=== PATIENT | female | born 1935 | race Caucasian/White ===

== ENCOUNTER → 2016-10-21 | Outpatient (CLI) | payer OTHER ==
[~2016-10-21] MED LIST: ASPEC81 PO; CENTTAB41; CLTP PO; DIPH-437 PO; DTR5 PO; FLUO40CA8 PO; HYZ/10015 PO; THYROXINE PO
--- NOTE | 2016-10-21 13:27 | MAMMOGRAPHY REPORT ---
BILATERAL DIGITAL SCREENING MAMMOGRAM WITH CAD: 10/21/2016 CLINICAL HISTORY: Routine screening. Patient has no complaints. TECHNIQUE: Current study was also evaluated with a Computer Aided Detection (CAD) system. Bilateral CC and MLO views were obtained. COMPARISON: Comparison is made to exams dated: 10/21/2015 mammogram, 10/17/2014 mammogram, 10/16/2013 ma mmogram, 10/12/2012 mammogram, 10/12/2011 mammogram, and 10/03/2009 mammogram - [facility] er. BREAST COMPOSITION: There are scattered areas of fibroglandular density in both breasts. FINDINGS: No suspicious masses, calcifications, or areas of architectural distortion are noted in ei ther breast. There has been no significant interval change compared to prior exams. IMPRESSION: ACR BI-RADS CATEGORY 1: NEGATIVE There is no mammographic evidence of malignancy. A 1 year screening mammogram is recommended. The pa tient will receive written notification of the results. Approximately 10% of breast cancers are not detected with mammography. A negative mammographic report should not delay biopsy if a clinically suggestive mass is present. Domenica Felder M.D. /:10/21/2016 12:51:04 Application Development Team Lead: Dina VAUGHAN)(Raeann), [facility] letter sent: Normal 1/2 BI-RADS Code: ACR BI-RADS Category 1: Negative
== END | disposition home or self-care (01) ==
LOC: C.MAMM 11:13
PROVIDERS: ATTEND Family Medicine
DX: Z12.31 Encounter for screening mammogram for malignant neoplasm of breast (principal)

== ENCOUNTER → 2016-12-22 | Outpatient (CLI) | payer OTHER ==
[2016-12-22 17:40] LABS: BASO % 0.7 %; BASO ABS # 0.05 K/uL (0-0.2); COMPLETE YES; EOS % 2.2 %; HEMATOCRIT 43.3 % (37-47); IG% 0.4 %; LYMPH % 36.1 %; LYMPH ABS # 2.47 K/uL (1.2-3.4); MEAN CELL VOLUME 90.8 fL (80-100); MEAN CORPUSCULAR HGB CONC 34.2 g/dl (32-36); MEAN PLATELET VOLUME 10.6 fL (7.4-10.4); MONO % 9.6 %; PLATELET COUNT 371 K/uL (130-400); RED BLOOD COUNT 4.77 M/uL (4.2-5.4); WHITE BLOOD COUNT 6.84 K/uL (4.8-10.8)
[2016-12-22 17:43] LABS: ALT/SGPT 20 U/L (12-78); AST/SGOT 15 U/L (15-37); BLOOD UREA NITROGEN 24 mg/dl (7-18); CALCIUM 8.9 mg/dl (8.5-10.1); CARBON DIOXIDE 28 mmol/L (21-32); CHLORIDE 106 mmol/L (98-107); GLUCOSE 102 mg/dl (70-99); SODIUM 139 mmol/L (136-145)
[2016-12-22 17:53] LABS: ALKALINE PHOSPHATASE 77 U/L (45-117)
== END | disposition home or self-care (01) ==
LOC: C.LABBFT 12:10
PROVIDERS: ATTEND Internal Medicine
DX: Z00.00 Encounter for general adult medical examination without abnormal findings (principal); E03.9 Hypothyroidism, unspecified; L29.9 Pruritus, unspecified; I10 Essential (primary) hypertension

== ENCOUNTER → 2017-04-19 | Outpatient (CLI) | payer OTHER ==
--- NOTE | 2017-04-19 10:58 | DIAGNOSTIC IMAGING REPORT ---
CHEST 2 VIEWS ROUTINE CLINICAL HISTORY: R05 Cough COMPARISON STUDY: No previous studies for comparison. FINDINGS: The cardiac and mediastinal contours are normal. There is no evidence of focal pulmonary consolidation. There is no evidence of failure. No pleural effusions are visualized.[ There is colonic interposition. IMPRESSION: No active disease in the chest. Electronically signed by: Jg Taveras M.D. 04/19/2017 10:57 AM Dictated Date/Time: 04/19/2017 10:57 AM
== END | disposition home or self-care (01) ==
LOC: C.RAD1850 10:46
PROVIDERS: ATTEND Nurse Practitioner
DX: R05 Cough (principal)

== ENCOUNTER 2021-07-09 05:02 | Observation (INO) ==
--- NOTE | 2021-07-08 08:40 | Anesthesiology Consultation ---
Date of Service July 08, 2021 Assessment & Plan (1) Encounter for pre-operative examination: - fluid orders: case including renal function, Cr 1.77 from [address] Frazier who advised normal saline with 500 cc bolus. This was ordered on fluid sheet. - Chronic back pain-onset after multiple attempts at epidural placement in labor per pt. - COVID screening: Per agriscience teacher on 07/07/2021: Travel screen negative, no known COVID-19 positive contacts or current COVID-19 related symptoms in past 2 weeks. Patient vaccinated. Surgeon arranging preop COVID testing, scheduled 07/07/2021. Awaiting results. Chart Review Chart Review: Acceptable Risk for Surgery and Patient NOT seen in Pre Admission Testing History Surgery Operation Date: 07/09/21 08:50 Proposed Procedures p Right Total Anterior Hip Replacement - Noah Arias DO Surgery re-scheduled to 07/09/2021. PAT evaluation 03/24/2021. Height/Weight Height: 5 ft 1 in Weight: 81.193 kg Allergies Allergy/AdvReac Type Severity Reaction Status Date / Time No Known Drug Allergies Allergy Verified 07/07/21 08:30 Medications Home Medications Medication Instructions Recorded Confirmed Last Taken multivitamin 1 cap PO QAM 11/21/18 07/07/21 Unknown acetaminophen 325 mg tablet 325 mg PO QID PRN 05/06/20 07/07/21 Unknown (Tylenol) tramadol 50 mg tablet 50 mg PO Q8H PRN #30 tab 02/03/21 07/07/21 Unknown cholecalciferol (vitamin D3) 125 125 mcg PO QAM 03/19/21 07/07/21 Unknown mcg (5,000 unit) capsule levothyroxine 88 mcg capsule 88 mcg PO QAM 03/19/21 07/07/21 Unknown paroxetine HCl 20 mg tablet 20 mg PO QAM 03/19/21 07/07/21 Unknown solifenacin 10 mg tablet (Vesicare) 10 mg PO QAM 03/19/21 07/07/21 Unknown triamterene 37.5 1 cap PO QAM 03/19/21 07/07/21 Unknown mg-hydrochlorothiazide 25 mg capsule valsartan 160 mg tablet 160 mg PO QAM 03/19/21 07/07/21 Unknown Relieve Factor 1 cap PO BID 07/07/21 07/07/21 Unknown melatonin 10 mg tablet 10 mg PO HS 07/07/21 07/07/21 Unknown pantoprazole 40 mg tablet,delayed 40 mg PO QAM 07/07/21 07/07/21 Unknown release (Protonix) polyethylene glycol 3350 17 17 g PO QAM 07/07/21 07/07/21 Unknown gram/dose oral powder (Miralax) Past Medical History Medical History (Updated 07/08/21 @ 08:51 by Savanah Marshall PA-C) Acid reflux Basal cell carcinoma (BCC) x 3, twice on nose and left hand-Mohs with nasal BCC-derm f/u annually Chronic back pain reports onset after 3 attempts for epidural anesthesia in labor, denies blood patch, follows with PCP Chronic cough s/p extensive negative workup, inhaler, and acid reflux therapy trials per 07/11/2019 PCP office note, pt denied change or worsening at PAT consult Chronic renal insufficiency Degenerative disc disease Depression Hypertension Hypothyroidism s/p lobectomy Obesity Osteoarthritis Osteopenia Paroxysmal supraventricular tachycardia Per remote records, pt unaware/denies palpitations Urge and stress incontinence Patient denied h/o stroke, seizures, heart attack, heart failure, DM, blood clots or blood transfusions. Exercise / Class Metabolic Activity II 4-5 Yardwork/Stairs/Walk up hill (no CP or SOB) Past Family History Family History Mother Alzheimer disease Cardiac disorder Sister Breast cancer Multiple myeloma Family history of diabetes mellitus Father Cardiac disorder Myocardial infarction, Onset Age: 60 Son Family history of diabetes mellitus Other Diabetes No family history of adverse response to anesthesia Denies family history of Colon cancer Ovarian cancer Prostate cancer Past Surgical History Surgical History H/O dilation and curettage H/O tubal ligation History of anesthesia reaction HEADACHE WHEN GIVEN SPINAL FOR CHILDBIRTH S/P cataract surgery R/L S/P colonoscopy S/P thyroid surgery Left lobectomy (r/t nodule) Status post Mohs surgery Past Anesthesia History No Family Hx of Anesthesia Complications and Other (see above under back pain) History of PONV No Hx of PONV and No Hx of Motion Sickness Social History Smoking Status: Former smoker tobacco type: cigarettes Do You Dip or Chew Tobacco: No Smoking End Date: 1968 Hx Alcohol Use: Yes Alcohol type: beer and wine alcohol intake frequency: 0-2 drinks per day Hx Substance Use: No substance use type: does not use Review of Systems Snoring per pt's , denies witnessed apneas or sleep studies. Patient denies chest pain, shortness of breath, dyspnea on exertion, fever, chills, wheezing, or palpitations. Physical Exam Vital Signs Vitals BP 126/71 P 69 TEMP 98.2 SP02 94% on RA RESP 16 Physical Mildly limited cervical extension range of motion without pain Full TMJ range of motion TMD 3.5 finger breaths Mallampati Score 3 Dentition: intact, crown front upper tooth, fixed partial right back lower; d enies implants, loose or chipped teeth Lungs: normal respiratory effort. Clear throughout to auscultation, no adventitious breath sounds Cardiac: regular rate and rhythm, no murmurs noted Carotid arteries: negative bruit bilat Extremities: no distal extremity edema Lab Results Anesthesia Preop Results Results Anesthesia Widget: WBC 8.74 K/uL (4.8-10.8) 07/07/21 Hgb 13.9 g/dL (12.0-16.0) 07/07/21 Hct 40.6 % (37-47) 07/07/21 Plt 422 K/uL (130-400) H 07/07/21 Na 141 mmol/L (136-145) 07/07/21 K 3.8 mmol/L (3.5-5.1) 07/07/21 Cl 103 mmol/L (98-107) 07/07/21 CO2 28 mmol/L (21-32) 07/07/21 BUN 30 mg/dl (6-23) H 07/07/21 Creat 1.77 mg/dl (0.6-1.2) H 07/07/21 Glucose Level 120 mg/dl (70-99(Fasting)) H 07/07/21 PT 10.3 Seconds (9.0-12.0) 07/07/21 PTT 27.5 Seconds (21.0-31.0) 07/07/21 INR 1.0 (0.9-1.1) 07/07/21 Blood Type O Positive 07/07/21 Antibody Screen NEGATIVE 07/07/21 Testing Electrocardiogram Date: 03/24/21 Sinus rhythm with 1st degree A-V block, rate 62 bpm. Otherwise normal ECG When compared with ECG of 10-MAR-2002 23:07, CO interval has increased Confirmed by Rey Hansen. Chest X-Ray Date: 03/24/21 Eventration of the right hemidiaphragm is noted with a loop of bowel projecting above the hepatic contour. The cardiomediastinal silhouette is normal. The lungs are clear. No evidence of pleural effusion or pneumothorax. IMPRESSION: No acute chest disease.
--- NOTE | 2021-07-08 12:59 | History & Physical Report ---
Date of Service July 08, 2021 Assessment & Plan (1) Osteoarthritis of right hip: We will proceed with a right anterior total of arthroplasty. Postoperatively she will be kept overnight for postop medical management. She will be started on aspirin for DVT prophylaxis. She plans to use energy physical therapy upon discharge. History of Present Illness Chief Complaint: Arthritis of the right hip. Primary Care Provider: Karen Lee MD Abbey is a pleasant 85-year-old female who is been ill with chronic worsening right hip and groin pain. X-rays and clinical examination been diagnostic for advanced osteoarthritis of the right hip. Is really hurting her quality of life. She cannot walk any long distance or do things that she enjoys. After extensive discussions in the office, she has elected to proceed with a right total hip arthroplasty. Allergies Allergy/AdvReac Type Severity Reaction Status Date / Time No Known Drug Allergies Allergy Verified 07/07/21 08:30 Home Medications Medication Instructions Recorded Confirmed Type multivitamin 1 cap PO QAM 11/21/18 07/07/21 History acetaminophen 325 mg tablet 325 mg PO QID PRN 05/06/20 07/07/21 History (Tylenol) tramadol 50 mg tablet 50 mg PO Q8H PRN #30 tab 02/03/21 07/07/21 Rx cholecalciferol (vitamin D3) 125 125 mcg PO QAM 03/19/21 07/07/21 History mcg (5,000 unit) capsule levothyroxine 88 mcg capsule 88 mcg PO QAM 03/19/21 07/07/21 History paroxetine HCl 20 mg tablet 20 mg PO QAM 03/19/21 07/07/21 History solifenacin 10 mg tablet (Vesicare) 10 mg PO QAM 03/19/21 07/07/21 History triamterene 37.5 1 cap PO QAM 03/19/21 07/07/21 History mg-hydrochlorothiazide 25 mg capsule valsartan 160 mg tablet 160 mg PO QAM 03/19/21 07/07/21 History Relieve Factor 1 cap PO BID 07/07/21 07/07/21 History melatonin 10 mg tablet 10 mg PO HS 07/07/21 07/07/21 History pantoprazole 40 mg tablet,delayed 40 mg PO QAM 07/07/21 07/07/21 History release (Protonix) polyethylene glycol 3350 17 17 g PO QAM 07/07/21 07/07/21 History gram/dose oral powder (Miralax) Past Med/Surg History Medical History Acid reflux Basal cell carcinoma (BCC) x 3, twice on nose and left hand-Mohs with nasal BCC-derm f/u annually Chronic back pain reports onset after 3 attempts for epidural anesthesia in labor, denies blood patch, follows with PCP Chronic cough s/p extensive negative workup, inhaler, and acid reflux therapy trials per 07/11/2019 PCP office note, pt denied change or worsening at PAT consult Chronic renal insufficiency Degenerative disc disease Depression Hypertension Hypothyroidism s/p lobectomy Obesity Osteoarthritis Osteopenia Paroxysmal supraventricular tachycardia Per remote records, pt unaware/denies palpitations Urge and stress incontinence Surgical History H/O dilation and curettage H/O tubal ligation History of anesthesia reaction HEADACHE WHEN GIVEN SPINAL FOR CHILDBIRTH S/P cataract surgery R/L S/P colonoscopy S/P thyroid surgery Left lobectomy (r/t nodule) Status post Mohs surgery Family History Mother Alzheimer disease Cardiac disorder Sister Breast cancer Multiple myeloma Family history of diabetes mellitus Father Cardiac disorder Myocardial infarction, Onset Age: 60 Son Family history of diabetes mellitus Other Diabetes No family history of adverse response to anesthesia Denies family history of Colon cancer Ovarian cancer Prostate cancer Social History Smoking Status: Former smoker Second Hand Exposure: No; Hx Alcohol Use: Yes Alcohol type: beer and wine Hx Substance Use: No Preferred Language: Jamaican Communication Ability: Effective Design Draftsman Required: No Beliefs That Will Affect Care: None marital status: Current Living Situation: Spouse current occupational status: retired Feels Safe at Home: Yes Dental Care, Regularly: Yes Physical Activity Frequency: 1-2 Times per Week Assistive Devices: Glasses Review of Systems All systems reviewed & are unremarkable except as noted in HPI & below. Physical Exam Physical examination of the right hip, she has difficulty lying down. She walks an antalgic gait. She has limited range of motion with forced internal and external rotation. Constitutional WD/WN, vitals as above Eyes PERRL, conjunctivae normal, anicteric sclerae ENMT external ear and nose normal, oropharynx normal Neck trachea midline, no thyromegaly Respiratory normal respiratory effort Cardiovascular RRR, no murmur, no edema Gastrointestinal (Abdomen) normal bowel sounds, soft, nontender, no hepatosplenomegaly Psychiatric A+Ox3, euthymic affect Results & Data Results & Data Laboratory Results . Diagnostic Findings . PG Care Time/CCT Total # of Minutes Spent Total Time Spent with Patient: Total time spent is greater than 50% in coordination of care (as documented) at patient's floor/unit and/or counseling patient: Coding Level of Care Code None Diagnoses Osteoarthritis of right hip M16.11
[2021-07-09] MEDS ORDERED: TRANEXAMIC ACID 1,000 MG **IV Intra-op IV SCH (06:00)
[2021-07-09] MEDS ORDERED: FAMOTIDINE 20 MG TAB PO SCH (06:00)
[2021-07-09] MEDS ORDERED: ceFAZolin 2000MG 2,000 MG/15 ML SYR IV SCH (06:00)
[2021-07-09] MEDS ORDERED: GABAPENTIN 300 MG CAP PO SCH (06:00)
[2021-07-09] MEDS ORDERED: Ketorolac (*for OR use only*) 30 MG, dexAMETHasone 4 MG, KETAMINE HCL (**OR use only) 1... INFIL SCH (06:00)
[2021-07-09] MEDS ORDERED: LR 60ML/HR IV SCH (06:00)
[2021-07-09] MEDS ORDERED: ACETAMINOPHEN 500 MG TAB PO SCH (06:00)
[2021-07-09] MEDS ORDERED: dexAMETHasone 4 MG TAB PO SCH (06:00)
[2021-07-09] MEDS ORDERED: TRANEXAMIC ACID 1,000 MG **IV Pre-op IV SCH (06:00)
[2021-07-09] MEDS ORDERED: PROPOFOL IV EMULSION 10 MG/ML 20 ML VIAL IV ONE ×2 (06:22→07:19)
[2021-07-09] MEDS ORDERED: BUPIVACAINE 0.5 % 5 MG/1 ML PF 10ML VIAL ONE (06:22)
[2021-07-09] MEDS ORDERED: MIDAZOLAM HCL 1 MG/ML 2ML VIAL ONE (06:23)
[2021-07-09] MEDS ORDERED: ORTHO JOINT ANESTHETIC ONE (06:29)
--- NOTE | 2021-07-09 06:38 | History & Physical Bridge Note ---
Date of Service July 09, 2021 History & Physical Bridge Note I have examined the patient, reviewed the History & Physical and in the interval since the performance of the History & Physical I have noted the following changes of clinical significance: no changes noted
[2021-07-09] MEDS ORDERED: ePHEDrine sulfate 50 MG/ML AMP IV PRN (06:51)
[2021-07-09] MEDS ORDERED: ONDANSETRON INJ 2 MG/ML 2 ML VIAL IV PRN (06:51)
[2021-07-09] MEDS ORDERED: ATROPINE SULFATE 0.1 MG/ML 10ML SYR IV PRN (06:51)
[2021-07-09] MEDS ORDERED: PHENYLEPHRINE HCL 10 MG/ML VIAL ONE (07:18)
[2021-07-09] MEDS ORDERED: ePHEDrine sulfate 50 MG/ML AMP ONE (07:18)
--- NOTE | 2021-07-09 08:44 | Operative Report ---
PG Post Operative Report Pre & Post Diagnosis Operation Date: 07/09/21 07:00 Pre-Op Diagnosis: Right Hip Osteoarthritis Post-Op Diagnosis: Right Hip Osteoarthritis I identified the patient and participated in the time-out.: Yes Procedure Operation Date: 07/09/21 07:00 Actual Procedures p Right Total Anterior Hip Arthroplasty, Uncemented(Right) - Noah Arias DO Surgeon Noah Arias DO Rug Cleaning Supervisor Noah Thompson PAC Estimated Blood Loss 300 Findings Consistent with Post-Op Diagnosis Specimens Right femoral head Complications none Disposition Disposition: Recovery Room Indications Abbey is a pleasant 85-year-old female who is been doing with chronic i ncreasing right hip and groin pain. X-rays and clinical examination have been diagnostic for advanced osteoarthritis of the right hip. After failing conservative treatment, she elected proceed with a right anterior total hip arthroplasty. Description of Procedure Implants used I used a [employer]immer[employer]omet total hip arthroplasty system with a size 2 standard offset Avenir Complete stem, a 50 mm G7 cup with a 25mm screw, an E1 polyethylene liner, a 36 mm ceramic head with a 0 neck. Abbey arrived at the hospital for the above procedure. She was seen in the preoperative holding area and the operative extremity was identified and signed. She was given a spinal anesthetic, a preoperative antibiotic, and TXA. She was then taken back to the operating room and laid on the table in the supine position. She was given basic sedation. The operative leg was secured to a Puristst leg positioner. The hip was then prepped and draped in sterile fashion. A timeout was done and the patient and the operative extremity was properly identified. An anterior approach was used. Dissection was taken down through the fascia and the tensor muscle belly was retracted laterally and the rectus was retracted medially. The circumflex vessels were identified and ligated. The capsule was then incised and tagged for later repair. The femoral neck was then cut and the femoral head was removed. The acetabulum was exposed. Time was spent doing a complete circumferential labral release. Sequential reaming of the acetabulum up to a size 49 reamer was done. Final reamings were done under fluoroscopy to ensure appropriate version. A Biomet 50 mm G7 cup was then impacted into place. A single 25 mm screw was placed. The E1 polyethylene liner was then snapped into place. Surrounding soft tissues were then injected with 100 cc of an orthopedic pain control cocktail. The proximal femur was then exposed. Sequential broaching up to a size 2 broach was done. Off that broach a size 36 head with a 0 neck was trialed. The hip was reduced and fluoroscopic images showed anatomic alignment of the implants in acceptable length. The broach was removed. The final size 2 standard offset Avenir Complete stem was then impacted into place. A ceramic 36 mm head with a 0 neck was then impacted onto the stem and the hip was reduced. Final fluoroscopic images showed anatomic alignment of the hip. The capsule was then closed with #1 Vicryl suture. A dilute betadyne lavage was then done for 3 minutes. The joint was then irrigated with normal saline solution. The fascia was closed with #1 PDS suture. Skin was closed with 2-0 Vicryl, ortega, and a Silverlon dressing. She was then transferred to a hospital bed and taken to the post anesthesia care unit in stable condition. She tolerated the procedure well. Noah Thompson PA-C, was present for the entire procedure. He was critical for patient positioning, prepping, draping, retraction exposure, wound closure and application of sterile dressing. I attest to the content of the Intraoperative Record and any orders documented therein. Any exceptions are noted below.
--- NOTE | 2021-07-09 08:54 | Fluoroscopy Report ---
FL hip RT 1V CLINICAL HISTORY: RIGHT ANTERIOR HIP COMPARISON STUDY: Right hip radiographs February 03, 2021. FLUOROSCOPY TIME: 41 seconds. FLUOROSCOPIC IMAGES: 2 FINDINGS: Fluoroscopy was provided during total right hip arthroplasty. There is an acetabular screw. Hardware is intact. No periprosthetic fracture is identified by fluoroscopy. IMPRESSION: Fluoroscopy provided during total right hip arthroplasty. ACT 112: Negative or not required by law. Electronically signed by: Saad Lee M.D. 07/09/2021 8:53 AM
--- NOTE | 2021-07-09 09:48 | XRay Report ---
XR hip 1V RT w pelvis CLINICAL HISTORY: Postoperative evaluation. COMPARISON: Right hip radiographs February 03, 2021. FINDINGS: Alignment of the total right hip arthroplasty is anatomic. No periprosthetic fracture or u nexpected radiopaque foreign body. Acetabular screw is noted. Skin ortega are noted. IMPRESSION: Expected findings following total right hip arthroplasty. ACT 112: Negative or not required by law. Electronically signed by: Saad Lee M.D. 07/09/2021 9:46 AM
[2021-07-09] MEDS ORDERED: HYDROmorphone INJ 0.5 MG/0.5 ML SYR IV PRN (10:32)
[2021-07-09] MEDS ORDERED: bisacodyL 10 MG SUPP PR PRN (10:32)
[2021-07-09] MEDS ORDERED: MAGNESIUM HYDROXIDE SUSP 30 ML UDC PO PRN (10:32)
[2021-07-09] MEDS ORDERED: METOCLOPRAMIDE HCL INJ 5 MG/ML 2 ML VIAL IV PRN (10:32)
[2021-07-09] MEDS ORDERED: traMADol HCL 50 MG TABLET PO PRN (10:32)
[2021-07-09] MEDS ORDERED: NALOXONE HCL 0.4 MG/1 ML VIAL/CARP IV PRN (10:32)
[2021-07-09] MEDS ORDERED: ACETAMINOPHEN 325 MG TAB PO PRN (10:32)
[2021-07-09] MEDS: PARoxetine HCL 20 MG TAB PO SCH (11:19)
[2021-07-09] MEDS: LEVOTHYROXINE SODIUM 88 MCG TABLET PO SCH (11:19)
[2021-07-09] MEDS: ASPIRIN 81 MG ECTAB PO SCH ×2 (11:20→22:16)
[2021-07-09] MEDS: DOCUSATE SODIUM 100 MG CAP PO SCH ×2 (11:21→22:16)
[2021-07-09] MEDS: KETOROLAC TROMETHAMINE 15 MG/ML VIAL IV SCH ×3 (11:22→22:16)
[2021-07-09] MEDS: MULTIVITAMIN TAB PO SCH (11:23)
[2021-07-09] MEDS: PANTOprazole 40 MG TAB PO SCH (11:23)
[2021-07-09] MEDS: TRIAMTERENE/HCTZ 37.5/25MG CAP PO SCH (11:24)
[2021-07-09] MEDS: VALSARTAN 80 MG TAB PO SCH (11:25)
[2021-07-09] MEDS: POLYETHYLENE (MIRALAX) 17 GM PACK PO SCH (11:26)
[2021-07-09] MEDS: SODIUM CHLORIDE 0.9% 1000ML 1,000 ML IV SCH ×4 (12:40→22:15)
--- NOTE | 2021-07-09 13:36 | Anesthesiology Progress Note ---
Date of Service July 09, 2021 Anesthesia Post Procedure Vital Signs Vital Signs: Temp Pulse Pulse Resp BP Pulse Ox 07/09/21 13:05 36.3 C L 81 16 116/66 94 07/09/21 12:45 36.4 C L 84 16 120/68 93 07/09/21 12:08 36.4 C L 82 119/60 92 07/09/21 11:30 36.1 C L 83 18 137/80 95 07/09/21 10:30 66 18 112/59 L 92 07/09/21 10:15 67 18 114/62 92 07/09/21 10:00 60 18 114/57 L 92 07/09/21 09:45 69 18 108/54 L 92 07/09/21 09:30 66 14 108/60 92 07/09/21 09:20 64 18 100/59 L 93 07/09/21 09:10 36.1 C L 64 18 109/51 L 93 07/09/21 09:00 64 15 104/55 L 96 07/09/21 08:50 66 19 100/67 97 07/09/21 08:43 36.1 C L 68 19 107/58 L 97 07/09/21 05:20 36.6 C 72 20 136/76 96 Transfer of Care Handoff Completed per policy Notes Mental Status: alert / awake / arousable and participated in evaluation Patient Amnestic to Procedure: Yes Nausea / Vomiting: adequately controlled Pain: adequately controlled Airway Patency, RR, SpO2: stable & adequate BP & HR: stable & adequate Hydration State: stable & adequate Neuraxial Anesthesia: was administered and sensory block is resolving Anesthetic Complications: no major complications apparent and Pt Satisfied with anesthetic care
[2021-07-09] MEDS: ceFAZolin 2000MG 2,000 MG/15 ML SYR IV SCH ×2 (15:24→22:37)
[2021-07-09] MEDS ORDERED: SENNA 8.6 MG TAB PO SCH (21:00)
[2021-07-09] MEDS ORDERED: MELATONIN 3 MG TAB PO SCH (21:00)
[2021-07-10] MEDS: LEVOTHYROXINE SODIUM 88 MCG TABLET PO SCH (05:25)
[2021-07-10] MEDS: KETOROLAC TROMETHAMINE 15 MG/ML VIAL IV SCH ×2 (05:25→10:40)
--- NOTE | 2021-07-10 07:21 | Orthopedic Progress Note ---
Date of Service July 10, 2021 Assessment & Plan (1) Status post right hip replacement: Overall she is doing very well. She denies any much pain in the right hip. She will be seen by physical therapy today for ambulation and range of motion exercises. She can be discharged home later today. She is on aspirin for DVT prophylaxis. She will follow-up with orthopedics in 2 weeks. Catarina Potter was seen and examined at bedside this morning. Overall she is doing very well. She is not having much pain in the right hip. She has been up and ambulating to the bathroom. She has no complaints.. Review of Systems All systems reviewed & are unremarkable except as noted in HPI & below. Physical Exam On physical examination of the right hip, the dressing is clean and dry. Her leg lengths are equal. She has active dorsiflexion plantarflexion of her right ankle.. Results & Data Results & Data Laboratory Results . Diagnostic Findings Postoperative x-rays of the right hip show the prosthesis to be in anatomic alignment without any evidence of fracture, desiccation, or loosening. PG Care Time/CCT Total # of Minutes Spent Total Time Spent with Patient: Total time spent is greater than 50% in coordination of care (as documented) at patient's floor/unit and/or counseling patient: Coding Level of Care Code 70519 Post Operative Follow-Up Diagnoses Status post right hip replacement Z96.641
--- NOTE | 2021-07-10 07:22 | Discharge Summary ---
Date of Service July 10, 2021 Admission HPI (Per Admitting) Abbey is a pleasant 85-year-old female who is been ill with chronic worsening right hip and groin pain. X-rays and clinical examination been diagnostic for advanced osteoarthritis of the right hip. Is really hurting her quality of life. She cannot walk any long distance or do things that she enjoys. After extensive discussions in the office, she has elected to proceed with a right total hip arthroplasty. Admission Exam (Per Admitting) Physical examination of the right hip, she has difficulty lying down. She walks an antalgic gait. She has limited range of motion with forced internal and external rotation. Principal Diagnosis Same as "Discharge Diagnosis" noted below under Discharge Instructions. Discharge Exam On physical examination of the right hip, the dressing is clean and dry. Her leg lengths are equal. She has active dorsiflexion plantarflexion of her right ankle.. Discharge Data Procedures Performed Operation Date: 07/09/21 07:00 Actual Procedures p Right Total Anterior Hip Arthroplasty, Uncemented(Right) - Noah Arias DO Ordered Studies 07/09/21 07:00 FL hip RT 1V Routine Hospital Course (1) Status post right hip replacement: On July 09, 2021 Abbey arrived at [facility] and underwent a right hip replacement without complication. She had a spinal anesthetic. Postoperatively she was started on aspirin for DVT prophylaxis and transferred to the general orthopedic floors. Her hospital course was uneventful. On postop day #1 her vital signs were stable and her pain was well controlled. She was able to participate well with physical therapy doing ambulation and range of motion exercises. She was then discharged home. She will follow with orthopedics in 2 weeks. PG Care Time/CCT Total # of Minutes Spent Total Time Spent with Patient: Total time spent is greater than 50% in coordination of care (as documented) at patient's floor/unit and/or counseling patient: Discharge Plan Discharge Items Patient Disposition: Home - Home Health Services Reason For Visit: Right Hip Osteoarthritis Discharge Diagnosis: Right hip replacement Activity: As commented below Non-emergency contact: Surgeon Call non-emergency contact if: your wound has increased redness and your wound has increased drainage Follow-up/Referrals: Karen Lee MD [Primary Care Provider] - Diet: Regular Addtl Attending Provider Instructions: Activity and Therapy Recommendations: * If you are using [facility] then therapy will be provided at your home until they feel you have accomplished all of your goals. * If you are using [facility] then Physical Therapy will be provided until they feel you are ready to start Outpatient Physical Therapy. * If you are not using home therapy then Outpatient Physical Therapy should start about 3-5 days from your day of surgery. Therapy will last about 6-10 weeks * You were shown a series of exercises in the hospital. Do these exercises three times each day including the exercises you were shown in physical therapy. * Get up and walk several times each day.~ For the first four weeks, try not to stand or walk for more than one hour at a time. If you do stand or walk for more than one hour, you will not hurt anything, but your leg will likely swell.~~ * As you feel comfortable, you may change from the walker or crutches to a cane and~then to independent walking. Medications: * Narcotic You will likely be sent home from the hospital with a prescription for the narcotic pain medication that worked best throughout your stay. * Aspirin Most patients will be required to take Aspirin 81mg twice a day for 6 weeks after surgery. This is obtained [id number] and a prescription is not necessary. * Other medications may be prescribed for specific circumstances. If you have any questions, please call the office at . * Resume previous home medications unless otherwise instructed TEDs/Elastic Stockings: The white elastic stockings help limit swelling and prevent blood clots from forming in your legs. The more you wear them, the more they work. Wear them for six weeks. Dressing Care: Leave the Silverlon dressing in place for 7 days. After 7 days you may remove the dressing. If the incision is not draining then you may leave the ortega open to air. If there is a little bit of drainage or if the ortega are getting stuck on your clothing then cover the incision with a dry dressing. The ortega will be removed at your 2 week follow-up appointment. Showering: You may shower with the Silverlon dressing in place. Do not let the shower spray hit the dressing directly. Pat the Silverlon dressing dry. If the dressing becomes wet underneath, then simply remove the dressing. Keep the incision dry until you are 7 days out from the day of surgery. After 7 days you may remove the Silverlon dressing and shower with the ortega exposed. Let soapy water run over the ortega and pat them dry. Do not scrub or soak the incision. Things To Watch For: * Drainage from the incision site that occurs more than one week after your surgery. * Increased redness at the incision site. * Fever above 102 degrees Fahrenheit. * Unusual chest pain or shortness of breath. * Call [facility] at with any of the above problems Follow-Up Visit: Follow-up with Dr. Arias's PA (Noah Thompson) 2-3 weeks after your day of surgery. He will remove your orteag and answer any questions. If you have any additional questions or concerns, Dr Arias is usually in the office at the same time and will be available An appointment was probably scheduled when you signed-up for surgery in the office. If you have any questions call Office Instructions: More detailed instructions as well as Frequently Asked Questions were provided in a folder by our office when you signed-up for surgery. Please review these instructions when you get home. If you have any further questions or concerns, please feel free to call the office at [phone] Pending Studies at Discharge: No Stand-Alone Forms: My [facility] Medications and DC Order Prescriptions: New oxycodone-acetaminophen 5-325 mg tablet 1 tab PO Q6H PRN (Reason: pain) Qty: 30 RF: 0 aspirin [Adult Aspirin Regimen] 81 mg tablet,delayed release (DR/EC) 81 mg PO BID Qty: 84 RF: 0 Continued multivitamin capsule 1 cap PO QAM RF: 0 acetaminophen [Tylenol] 325 mg tablet 325 mg PO QID PRN (Reason: Pain) RF: 0 polyethylene glycol 3350 [Miralax] 17 gram/dose Powder 17 g PO QAM RF: 0 melatonin 10 mg Tablet 10 mg PO HS RF: 0 Relieve Factor 1 cap PO BID RF: 0 pantoprazole [Protonix] 40 mg tablet,delayed release (DR/EC) 40 mg PO QAM RF: 0 triamterene-hydrochlorothiazid 37.5-25 mg capsule 1 cap PO QAM RF: 0 paroxetine HCl 20 mg tablet 20 mg PO QAM RF: 0 cholecalciferol (vitamin D3) 125 mcg (5,000 unit) capsule 125 mcg PO QAM RF: 0 valsartan 160 mg tablet 160 mg PO QAM RF: 0 solifenacin [Vesicare] 10 mg tablet 10 mg PO QAM RF: 0 levothyroxine 88 mcg capsule 88 mcg PO QAM RF: 0 Discontinued tramadol 50 mg tablet 50 mg PO Q8H PRN (Reason: pain) Qty: 30 RF: 0 Discharge Orders: Discharge Order (Routine); Ordered 07/10/21 Ordered By: Noah Arias Admission Data Admit Date/Time: 07/09/21 08:47 Attending Provider: Noah Arias Admit Provider: Noah Arias Primary Care Provider: Karen Lee
[2021-07-10] MEDS ORDERED: dexAMETHasone 4 MG TAB PO SCH (08:00)
[2021-07-10] MEDS: PANTOprazole 40 MG TAB PO SCH (08:02)
[2021-07-10] MEDS: PARoxetine HCL 20 MG TAB PO SCH (08:02)
[2021-07-10] MEDS: TRIAMTERENE/HCTZ 37.5/25MG CAP PO SCH (08:03)
[2021-07-10] MEDS: MULTIVITAMIN TAB PO SCH (08:03)
[2021-07-10] MEDS: ASPIRIN 81 MG ECTAB PO SCH (08:03)
[2021-07-10] MEDS: VALSARTAN 80 MG TAB PO SCH (08:03)
[2021-07-10] MEDS: DOCUSATE SODIUM 100 MG CAP PO SCH (08:07)
[2021-07-10] MEDS: POLYETHYLENE (MIRALAX) 17 GM PACK PO SCH (08:07)
[2021-07-10] MEDS ORDERED: oxyCODONE/ACETAMINOPHEN 5mg/325mg TAB PO PRN (11:38)
== END 2021-07-10 12:11 | disposition home health service (06) ==
LOC: ASU 05:02 → PACUINP 05:02 → 3E 12:37

== ENCOUNTER 2023-04-19 05:09 | Observation (INO) ==
--- NOTE | 2023-03-15 12:34 | PAT Medication Instructions ---
Medication Instructions Date of Service March 15, 2023 Home Medications Medication Instructions Recorded amoxicillin 500 mg tablet 2,000 mg (4 x 500 mg) PO ONCE #4 01/13/23 tabs meclizine 12.5 mg tablet 12.5 mg PO Q6H PRN dizziness #30 02/19/23 tabs valsartan 160 mg tablet 160 mg PO DAILY #90 tabs 02/19/23 vibegron 75 mg tablet (Gemtesa) 75 mg PO DAILY #90 tabs 03/11/23 multivitamin 1 cap PO QAM acetaminophen 325 mg tablet (Tylenol) 975 mg PO BID PRN Pain cholecalciferol (vitamin D3) 125 mcg (5,000 unit) capsule 125 mcg PO QAM melatonin 10 mg tablet 10 mg PO HS polyethylene glycol 3350 17 gram/dose oral powder (Miralax) 17 g PO QAM pantoprazole 40 mg tablet,delayed release (Protonix) 40 mg PO QAM Acid Reflux paroxetine HCl 20 mg tablet 20 mg PO QAM triamterene 37.5 mg-hydrochlorothiazide 25 mg capsule 1 cap PO QAM amoxicillin 500 mg tablet 2,000 mg (4 x 500 mg) PO ONCE meclizine 12.5 mg tablet 12.5 mg PO Q6H PRN dizziness valsartan 160 mg tablet 160 mg PO DAILY levothyroxine 88 mcg capsule 88 mcg PO QAM vibegron 75 mg tablet (Gemtesa) 75 mg PO DAILY Continue as directed amoxicillin 500 mg tablet 2,000 mg (4 x 500 mg) PO ONCE DO NOT take the morning of surgery multivitamin 1 cap PO QAM cholecalciferol (vitamin D3) 125 mcg (5,000 unit) capsule 125 mcg PO QAM polyethylene glycol 3350 17 gram/dose oral powder (Miralax) 17 g PO QAM triamterene 37.5 mg-hydrochlorothiazide 25 mg capsule 1 cap PO QAM valsartan 160 mg tablet 160 mg PO DAILY Take morning of surgery With a small sip of water, OTHERWISE NOTHING TO EAT OR DRINK AFTER MIDNIGHT: acetaminophen 325 mg tablet (Tylenol) 975 mg PO BID PRN Pain (if needed) pantoprazole 40 mg tablet,delayed release (Protonix) 40 mg PO QAM Acid Reflux paroxetine HCl 20 mg tablet 20 mg PO QAM meclizine 12.5 mg tablet 12.5 mg PO Q6H PRN dizziness (if needed) levothyroxine 88 mcg capsule 88 mcg PO QAM vibegron 75 mg tablet (Gemtesa) 75 mg PO DAILY Take evening before surgery acetaminophen 325 mg tablet (Tylenol) 975 mg PO BID PRN Pain (if needed) melatonin 10 mg tablet 10 mg PO HS meclizine 12.5 mg tablet 12.5 mg PO Q6H PRN dizziness (if needed) Other Notes If you have any questions please call us at [phone] or [phone] or [phone] or [phone]
--- NOTE | 2023-03-22 13:14 | Anesthesiology Consultation ---
Date of Service March 22, 2023 Assessment & Plan (1) Encounter for pre-operative examination: - Chronic back pain-onset after multiple attempts at epidural placement in labor per pt. Patient received SAB for R EUGENIO and states is agreeable to neuraxial anesthesia for upcoming left EUGENIO as well. - Outpatient joint assessment: Patient is currently scheduled for inpatient pathway. If re-evaluated and patient/surgeon requests outpatient pathway, patient is not recommended candidate for outpatient joint program from anesthesia standpoint. Chart Review Chart Review: Acceptable Risk for Surgery and Patient seen in Pre Admission Testing Teaching & Discussion Pre-Anesthesia Teaching/Discussion Notes: Instructed NPO after midnight before surgery, except medications with 15 cc of water. Medication instructions provided according to the PAT guidelines. History Surgery Operation Date: 04/19/23 07:00 Proposed Procedures p Left Anterior Total Hip Arthroplasty - Noah Arias DO Height/Weight Height: 5 ft 1.5 in Weight: 76.6 kg Allergies Allergy/AdvReac Type Severity Reaction Status Date / Time No Known Drug Allergies Allergy Verified 03/09/23 14:09 Medications Home Medications Medication Instructions Recorded Confirmed Last Taken multivitamin 1 cap PO QAM 11/21/18 03/09/23 12/08/22 acetaminophen 325 mg tablet 975 mg PO BID PRN Pain 05/06/20 03/09/23 07/08/21 21:00 (Tylenol) cholecalciferol (vitamin D3) 125 125 mcg PO QAM 03/19/21 03/09/23 12/08/22 mcg (5,000 unit) capsule melatonin 10 mg tablet 10 mg PO HS 07/07/21 03/09/23 12/08/22 polyethylene glycol 3350 17 17 g PO QAM 07/07/21 03/09/23 12/08/22 gram/dose oral powder (Miralax) pantoprazole 40 mg tablet,delayed 40 mg PO QAM Acid Reflux 11/27/22 03/09/23 12/08/22 release (Protonix) paroxetine HCl 20 mg tablet 20 mg PO QAM 11/27/22 03/09/23 12/08/22 triamterene 37.5 1 cap PO QAM 11/27/22 03/09/23 12/08/22 mg-hydrochlorothiazide 25 mg capsule amoxicillin 500 mg tablet 2,000 mg (4 x 500 mg) PO ONCE #4 01/13/23 03/09/23 Unknown tabs meclizine 12.5 mg tablet 12.5 mg PO Q6H PRN dizziness #30 02/19/23 03/09/23 Unknown tabs valsartan 160 mg tablet 160 mg PO DAILY #90 tabs 02/19/23 03/09/23 Unknown levothyroxine 88 mcg capsule 88 mcg PO QAM 03/09/23 03/09/23 Unknown vibegron 75 mg tablet (Gemtesa) 75 mg PO DAILY #90 tabs 03/11/23 Unknown Additional Notes: Gemtesa was discussed with Dr. Butcher who advised holding medication morning of surgery. Patient was instructed and it was adjusted on her provided medication instruction list to not take medication morning of surgery. She verbalized full understanding and agreement, denied questions or concerns. 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 Exercise / Class Metabolic Activity II 4-5 Yardwork/Stairs/Walk up hill (denies chest discomfort or shortness of breath with 1 FOS) Past Family History Family History Mother Alzheimer disease Cardiac disorder Sister Breast cancer Multiple myeloma Family history of diabetes mellitus Father Cardiac disorder Myocardial infarction, Onset Age: 60 Son Family history of diabetes mellitus Other Diabetes No family history of adverse response to anesthesia Denies family history of Colon cancer Ovarian cancer Prostate cancer Past Surgical History Surgical History (Updated 03/22/23 @ 13:20 by Savanah Marshall PA-C) S/P epidural steroid injection 12/2022 and upcoming 04/2023 [place] teeth removed Status post right hip replacement Right EUGENIO anterior (07/09/21): SAB at L4-5 (x1 attempt) at [facility] History of anesthesia reaction Headache with spinal for childbirth Status post Mohs surgery S/P colonoscopy 12/09/22: MAC at [facility] H/O tubal ligation S/P thyroid surgery Left lobectomy (r/t nodule) H/O dilation and curettage S/P cataract surgery R/L Past Anesthesia History No Family Hx of Anesthesia Complications and Other (headache after spinal during childbirth) History of PONV No Hx of PONV and No Hx of Motion Sickness Social History Smoking Status: Former smoker tobacco type: cigarettes Do You Dip or Chew Tobacco: No Smoking End Date: 1968 Hx Alcohol Use: Yes Alcohol type: beer and wine alcohol intake frequency: a few times a month substance use type: does not use Review of Systems Snoring, denies witnessed apneas. Patient denies chest pain, shortness of breath, dyspnea on exertion, fever, chills, cough, wheezing, or palpitations. Physical Exam Vital Signs Vitals BP 138/76 P 59 TEMP 97.3 SP02 97% on RA RESP 17 Physical Patient resting comfortably in chair in no acute distress, alert and oriented, responding appropriately throughout visit Full cervical extension range of motion without pain TMD 3.5 finger breadths Mallampati Score 3 Dentition: several caps, denies chipped or loose teeth, crowns, implants or bridges Lungs: normal respiratory effort. Good air movement, clear throughout to a uscultation, no adventitious breath sounds Cardiac: regular rate and rhythm, no murmurs noted Carotid arteries: negative bruit bilat Lab Results Anesthesia Preop Results Results Anesthesia Widget: WBC 4.99 K/ul (4.8-10.8) 03/22/23 Hgb 12.9 g/dl (12.0-16.0) 03/22/23 Hct 37.7 % (37.0-47.0) 03/22/23 Plt 359 K/uL (130-400) 03/22/23 Na 139 mmol/L (136-145) 03/22/23 K 3.5 mmol/L (3.5-5.1) 03/22/23 Cl 102 mmol/L (98-107) 03/22/23 CO2 29 mmol/L (21-32) 03/22/23 BUN 36 mg/dl (6-23) H 03/22/23 Creat 1.57 mg/dl (0.6-1.2) H 03/22/23 Glucose Level 98 mg/dl (70-99(Fasting)) 03/22/23 PT 10.6 Seconds (9.0-12.0) 03/22/23 PTT 26.2 Seconds (21.0-31.0) 03/22/23 INR 1.0 (0.9-1.1) 03/22/23 Blood Type O Positive 03/22/23 Antibody Screen NEGATIVE 03/22/23 Testing Electrocardiogram Date: 03/22/23 Sinus bradycardia with 1st degree AV block, rate 57 bpm Chest X-Ray Date: 03/22/23 No acute cardiopulmonary findings. No change in appearance of the chest. Other Testing Abdomen pelvis CT 09/16/22 No acute abnormalities to explain lower abdominal pain. Additional findings as above. Brain MRI 09/15/22 No acute intracranial abnormality.
--- NOTE | 2023-04-15 06:52 | History & Physical Report ---
Date of Service April 15, 2023 Assessment & Plan (1) Osteoarthritis of left hip: We will proceed with a left anterior total of arthroplasty. Postoperatively she will be started on aspirin for DVT prophylaxis and kept overnight in the hospital for postop medical management. [facility] plans [facility]. History of Present Illness Chief Complaint: Osteoarthritis of the left hip. Primary Care Provider: Karen Lee MD Abbey is a pleasant 87-year-old female who I did a right hip replacement on about 2 years ago. She did very well with that. Now, she is dealing with left hip pain. All of her pain is located in her groin. She is having more and more trouble ambulating. She has trouble going up and down stairs. X-rays of clinical examination of the diagnostic for advanced arthritis of the left hip. After failing conservative treatment, she has elected proceed with a left anterior total of arthroplasty. Allergies Allergy/AdvReac Type Severity Reaction Status Date / Time No Known Drug Allergies Allergy Verified 04/12/23 13:16 Home Medications Medication Instructions Recorded Confirmed Type multivitamin 1 cap PO QAM 11/21/18 04/12/23 History acetaminophen 325 mg tablet 975 mg PO BID PRN Pain 05/06/20 04/12/23 History (Tylenol) cholecalciferol (vitamin D3) 125 125 mcg PO QAM 03/19/21 04/12/23 History mcg (5,000 unit) capsule melatonin 10 mg tablet 10 mg PO HS 07/07/21 04/12/23 History polyethylene glycol 3350 17 17 g PO QAM 07/07/21 04/12/23 History gram/dose oral powder (Miralax) pantoprazole 40 mg tablet,delayed 40 mg PO QAM Acid Reflux 11/27/22 04/12/23 History release (Protonix) paroxetine HCl 20 mg tablet 20 mg PO QAM 11/27/22 04/12/23 History triamterene 37.5 1 cap PO QAM 11/27/22 04/12/23 History mg-hydrochlorothiazide 25 mg capsule amoxicillin 500 mg tablet 2,000 mg (4 x 500 mg) PO ONCE #4 01/13/23 04/12/23 Rx tabs meclizine 12.5 mg tablet 12.5 mg PO Q6H PRN dizziness #30 02/19/23 04/12/23 Rx tabs valsartan 160 mg tablet 160 mg PO DAILY #90 tabs 02/19/23 04/12/23 Rx levothyroxine 88 mcg capsule 88 mcg PO QAM 03/09/23 04/12/23 History vibegron 75 mg tablet (Gemtesa) 75 mg PO DAILY #90 tabs 03/11/23 04/12/23 Rx Past Med/Surg History Medical History Vertigo stable per pt; prn meclizine Spinal stenosis History of PSVT (paroxysmal supraventricular tachycardia) 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 History of basal cell cancer nose s/p excision Degenerative disc disease Chronic renal insufficiency Chronic cough s/p extensive negative workup, inhaler, and acid reflux therapy trials Acid reflux controlled, stable per pt Depression Diverticulosis h/o diverticulitis Hypertension controlled, stable per pt Hypothyroidism Osteopenia Tricuspid regurgitation Urge and stress incontinence Vulvar mass Monitored by gynecology Surgical History S/P epidural steroid injection 12/2022 and upcoming 04/2023 [place] teeth removed Status post right hip replacement Right EUGENIO anterior (07/09/21): SAB at L4-5 (x1 attempt) at [facility] History of anesthesia reaction Headache with spinal for childbirth Status post Mohs surgery S/P colonoscopy 12/09/22: MAC at [facility] H/O tubal ligation S/P thyroid surgery Left lobectomy (r/t nodule) H/O dilation and curettage S/P cataract surgery R/L Family History Mother Alzheimer disease Cardiac disorder Sister Breast cancer Multiple myeloma Family history of diabetes mellitus Father Cardiac disorder Myocardial infarction, Onset Age: 60 Son Family history of diabetes mellitus Other Diabetes No family history of adverse response to anesthesia Denies family history of Colon cancer Ovarian cancer Prostate cancer Social History Smoking Status: Former smoker Tobacco Type: Cigarettes Second Hand Exposure: No; Do You Dip or Chew Tobacco: No; Hx Alcohol Use: Yes Alcohol type: beer and wine Preferred Language: Persian Communication Ability: Effective Child Care Center Administrator Required: No Beliefs That Will Affect Care: None marital status: Current Living Situation: Spouse current occupational status: retired Feels Safe at Home: Yes Childhood Exposure to Second-Hand Smoke: No Diet: regular caffeine: Yes during the past year weight has: remained stable Dental Care, Regularly: Yes Physical Activity Frequency: 1-2 Times per Week Seatbelt Use: always Sunscreen Use: Yes Assistive Devices: Glasses and Walker Review of Systems All systems reviewed & are unremarkable except as noted in HPI & below. Physical Exam On physical examination of left hip, she has decreased range of motion. She has pain with forced internal and external rotation. All of her pains located in her groin. Constitutional WD/WN, vitals as above Eyes PERRL, conjunctivae normal, anicteric sclerae ENMT external ear and nose normal, oropharynx normal Neck trachea midline, no thyromegaly Respiratory normal respiratory effort Cardiovascular RRR, no murmur, no edema Gastrointestinal (Abdomen) normal bowel sounds, soft, nontender, no hepatosplenomegaly Psychiatric A+Ox3, euthymic affect Results & Data Results & Data Laboratory Results . Diagnostic Findings X-rays of the left hip show advanced osteoarthritis with joint space narrowing, osteophyte measured, and [id number] tubulation.. PG Care Time/CCT Total # of Minutes Spent Total Time Spent with Patient: Total time spent is greater than 50% in coordination of care (as documented) at patient's floor/unit and/or counseling patient: Coding Level of Care Code None Diagnoses Osteoarthritis of left hip M16.12
[2023-04-19] MEDS ORDERED: GABAPENTIN 300 MG CAP PO SCH (06:00)
[2023-04-19] MEDS ORDERED: LR 500ML BOLUS, THEN 15ML/HR IV SCH (06:00)
[2023-04-19] MEDS ORDERED: FAMOTIDINE 20 MG TAB PO SCH (06:00)
[2023-04-19] MEDS ORDERED: LR 60ML/HR IV SCH (06:00)
[2023-04-19] MEDS ORDERED: ACETAMINOPHEN 500 MG TAB PO SCH (06:00)
[2023-04-19] MEDS ORDERED: Ketorolac (*for OR use only*) 30 MG, dexAMETHasone 4 MG, KETAMINE HCL (**OR use only) 1... INFIL SCH (06:00)
[2023-04-19] MEDS ORDERED: TRANEXAMIC ACID 1,000 MG **IV Pre-op IV SCH (06:00)
[2023-04-19] MEDS ORDERED: TRANEXAMIC ACID 1,000 MG **IV Intra-op IV SCH (06:00)
[2023-04-19] MEDS ORDERED: ceFAZolin 2000MG 2,000 MG/15 ML SYR IV SCH (06:00)
[2023-04-19] MEDS ORDERED: dexAMETHasone 4 MG TAB PO SCH (06:00)
[2023-04-19] MEDS ORDERED: BUPIVACAINE 0.5 % 5 MG/1 ML PF 10ML VIAL ONE (06:19)
[2023-04-19] MEDS ORDERED: ORTHO JOINT ANESTHETIC ONE (06:34)
--- NOTE | 2023-04-19 06:35 | History & Physical Bridge Note ---
Date of Service April 19, 2023 History & Physical Bridge Note I have examined the patient, reviewed the History & Physical and in the interval since the performance of the History & Physical I have noted the following changes of clinical significance: no changes noted
[2023-04-19] MEDS ORDERED: MIDAZOLAM HCL 1 MG/ML 2ML VIAL ONE (06:39)
[2023-04-19] MEDS ORDERED: LIDOCAINE 2% 2 ML VIAL/AMP(20MG/ML) INFIL ONE (06:39)
[2023-04-19] MEDS ORDERED: ONDANSETRON INJ 2 MG/ML 2 ML VIAL ONE (06:39)
[2023-04-19] MEDS ORDERED: PROPOFOL IV EMULSION 10 MG/ML 20 ML VIAL IV ONE (06:39)
[2023-04-19] MEDS ORDERED: fentaNYL citrate PF 100 MCG/2 ML VIAL IV PRN (06:49)
[2023-04-19] MEDS ORDERED: ATROPINE SULFATE 0.1 MG/ML 10ML SYR IV PRN (06:49)
[2023-04-19] MEDS ORDERED: ePHEDrine sulfate 50 MG/ML AMP IV PRN (06:49)
[2023-04-19] MEDS ORDERED: ONDANSETRON INJ 2 MG/ML 2 ML VIAL IV PRN ×2 (06:49→09:43)
[2023-04-19] MEDS ORDERED: ePHEDrine sulfate 50 MG/5 ML SYR ONE (07:29)
--- NOTE | 2023-04-19 08:09 | Operative Report ---
PG Post Operative Report Pre & Post Diagnosis Operation Date: 04/19/23 07:00 Pre-Op Diagnosis: Left Hip Osteoarthritis Post-Op Diagnosis: Left Hip Osteoarthritis I identified the patient and participated in the time-out.: Yes Procedure Operation Date: 04/19/23 07:00 Actual Procedures p Left Anterior Total Hip Arthroplasty, Uncemented(Left) - Noah Arias DO Surgeon Noah Arias DO Ethanol Operator Noah Thompson PA-C Estimated Blood Loss 300 Findings Consistent with Post-Op Diagnosis Specimens Left femoral head Description of Procedure Implants used I used a ZimmerBiomet total hip arthroplasty system with a size 2 standard offset Avenir Complete stem, a 52 mm G7 cup with a 25mm screw, an E1 polyethylene liner, a 36 mm ceramic head with a +3.5 neck. Abbey arrived at the hospital for the above procedure. She was seen in the preoperative holding area and the operative extremity was identified and signed. She was given a spinal anesthetic, a preoperative antibiotic, and TXA. She was then taken back to the operating room and laid on the table in the supine position. She was given basic sedation. The operative leg was secured to a Puristst leg positioner. The hip was then prepped and draped in sterile fashion. A timeout was done and the patient and the operative extremity was properly identified. An anterior approach was used. Dissection was taken down through the fascia and the tensor muscle belly was retracted laterally and the rectus was retracted medially. The circumflex vessels were identified and ligated. The capsule was then incised and tagged for later repair. The femoral neck was then cut and the femoral head was removed. The acetabulum was exposed. Time was spent doing a complete circumferential labral release. Sequential reaming of the acetabulum up to a size 51 reamer was done. Final reamings were done under fluoroscopy to ensure appropriate version. A Biomet 52 mm G7 cup was then impacted into place. A single 25 mm screw was placed. The E1 polyethylene liner was then snapped into place. Surrounding soft tissues were then injected with 100 cc of an orthopedic pain control cocktail. The proximal femur was then exposed. Sequential broaching up to a size 2 broach was done. Off that broach a size 36 head with a +3.5 neck was trialed. The hip was reduced and fluoroscopic images showed anatomic alignment of the implants in acceptable length. The broach was removed. The final size 2 standard offset Avenir Complete stem was then impacted into place. A ceramic 36 mm head with a +3.5 neck was then impacted onto the stem and the hip was reduced. Final fluoroscopic images showed anatomic alignment of the hip. The capsule was then closed with #1 Vicryl suture. A dilute betadyne lavage was then done for 3 minutes. The joint was then irrigated with normal saline solution. The fascia was closed with #1 PDS suture. Skin was closed with 2-0 Vicryl, ortega, and a Silverlon dressing. She was then transferred to a hospital bed and taken to the post anesthesia care unit in stable condition. She tolerated the procedure well. Noah Thompson PA-C, was present for the entire procedure. He was critical for patient positioning, prepping, draping, retraction exposure, wound closure and application of sterile dressing. I attest to the content of the Intraoperative Record and any orders documented therein. Any exceptions are noted below.
--- NOTE | 2023-04-19 08:36 | Fluoroscopy Report ---
FL hip LT 1V CLINICAL HISTORY: Left anterior total hip arthroplastyleft hip arthroplasty COMPARISON STUDY: 01/27/2023 FLUOROSCOPY TIME: 17.7 seconds FLUOROSCOPY IMAGES: 1 EXPOSURE DOSE: 2.0301 mGy FINDINGS: Left hip arthroplasty demonstrates satisfactory alignment. Expected postoperative soft tiss ue swelling with deep tissue air. No acute fracture or dislocation. No opaque foreign body. IMPRESSION: Fluoroscopic assistance as above. ACT 112: Negative or not required by law. Electronically signed by: Seth Howard M.D. 04/19/2023 8:35 AM
--- NOTE | 2023-04-19 08:51 | Anesthesiology Progress Note ---
Date of Service April 19, 2023 Anesthesia Post Procedure Vital Signs Vital Signs: Temp Pulse Pulse Resp BP Pulse Ox O2 Del Method 04/19/23 08:45 58 L 15 126/53 L 98 Oxymask 04/19/23 08:35 64 18 112/39 L 100 Oxymask 04/19/23 08:29 36.2 C L 66 12 103/50 L 94 Oxymask 04/19/23 05:47 36.6 C 62 20 140/61 96 Room Air O2 Flow Rate 04/19/23 08:45 4 04/19/23 08:35 6 04/19/23 08:29 8 04/19/23 05:47 Pain Intensity Left Hip: Pain Intensity: 8 Transfer of Care Handoff Completed per policy Notes Mental Status: alert / awake / arousable Patient Amnestic to Procedure: Yes Nausea / Vomiting: adequately controlled Pain: adequately controlled Airway Patency, RR, SpO2: stable & adequate BP & HR: stable & adequate Hydration State: stable & adequate Neuraxial Anesthesia: was administered and sensory block is resolving Anesthetic Complications: no major complications apparent and Pt Satisfied with anesthetic care
--- NOTE | 2023-04-19 09:17 | XRay Report ---
XR hip 1V LT w pelvis CLINICAL HISTORY: Postoperative evaluation COMPARISON: Left hip radiographs January 27, 2023. FINDINGS: Alignment of the total left hip arthroplasty is anatomic. There is no periprosthetic fract ure or unexpected radiopaque foreign body. There are skin ortega. Right hip arthroplasty is noted. IMPRESSION: Expected findings following total left hip arthroplasty. ACT 112: Negative or not required by law. Electronically signed by: Saad Lee M.D. 04/19/2023 9:16 AM
[2023-04-19] MEDS ORDERED: METOCLOPRAMIDE HCL INJ 5 MG/ML 2 ML VIAL IV PRN (09:43)
[2023-04-19] MEDS ORDERED: NALOXONE HCL 0.4 MG/1 ML VIAL/CARP IV PRN (09:43)
[2023-04-19] MEDS ORDERED: bisacodyL 10 MG SUPP PR PRN (09:43)
[2023-04-19] MEDS ORDERED: MECLIZINE 12.5 MG TAB PO PRN (09:43)
[2023-04-19] MEDS ORDERED: MAGNESIUM HYDROXIDE SUSP 30 ML UDC PO PRN (09:43)
[2023-04-19] MEDS ORDERED: HYDROmorphone INJ 0.5 MG/0.5 ML SYR IV PRN (09:43)
[2023-04-19] MEDS: MULTIVITAMIN TAB PO SCH (11:16)
[2023-04-19] MEDS: DOCUSATE SODIUM 100 MG CAP PO SCH ×2 (11:16→19:36)
[2023-04-19] MEDS: PARoxetine HCL 20 MG TAB PO SCH (11:16)
[2023-04-19] MEDS: ASPIRIN 81 MG ECTAB PO SCH ×2 (11:16→19:36)
[2023-04-19] MEDS: TRIAMTERENE/HCTZ 37.5/25MG CAP PO SCH (11:17)
[2023-04-19] MEDS: VALSARTAN 80 MG TAB PO SCH (11:17)
[2023-04-19] MEDS: SODIUM CHLORIDE 0.9% 1,000 ML IV SCH ×2 (11:19→19:37)
[2023-04-19] MEDS: oxyCODONE HCL IR 5 MG TAB (IMMEDIATE RELEASE) PO PRN ×2 (14:50→19:34)
[2023-04-19] MEDS: ACETAMINOPHEN 500 MG TAB PO SCH ×2 (14:51→22:45)
[2023-04-19] MEDS: ceFAZolin 2000MG 2,000 MG/15 ML SYR IV SCH ×2 (14:53→22:45)
[2023-04-19] MEDS ORDERED: SENNA 8.6 MG TAB PO SCH (21:00)
[2023-04-19] MEDS ORDERED: MELATONIN 3 MG TAB PO SCH (21:00)
[2023-04-20] MEDS: ACETAMINOPHEN 500 MG TAB PO SCH (05:30)
[2023-04-20] MEDS ORDERED: LEVOTHYROXINE SODIUM 88 MCG TABLET PO SCH (06:30)
[2023-04-20] MEDS: PARoxetine HCL 20 MG TAB PO SCH (07:59)
[2023-04-20] MEDS: TRIAMTERENE/HCTZ 37.5/25MG CAP PO SCH (08:00)
[2023-04-20] MEDS: DOCUSATE SODIUM 100 MG CAP PO SCH (08:00)
[2023-04-20] MEDS: MULTIVITAMIN TAB PO SCH (08:00)
[2023-04-20] MEDS ORDERED: dexAMETHasone 4 MG TAB PO SCH (08:00)
[2023-04-20] MEDS: VALSARTAN 80 MG TAB PO SCH (08:00)
[2023-04-20] MEDS: ASPIRIN 81 MG ECTAB PO SCH (08:00)
--- NOTE | 2023-04-20 09:39 | Orthopedic Progress Note ---
Date of Service April 20, 2023 Assessment & Plan (1) Status post left hip replacement: Overall, she is doing quite well today with good pain control to the left hip. She will work with physical therapy today working on ambulation and range of motion exercises. She was started on aspirin for DVT prophylaxis. She may be discharged home later today. She will follow-up with orthopedics in 2 weeks for postoperative care. Subjective . Abbey was seen and evaluated at bedside today resting comfortably in no apparent distress. She notes that her pain is well-controlled to the left hip. She has been up and ambulating to the bathroom. She denies any other concerns. Review of Systems All systems reviewed & are unremarkable except as noted in HPI & below. Physical Exam . On physical examination of the left hip, dressing is in place clean, dry, and intact. Leg is out in full extension. Active plantarflexion dorsiflexion at the left ankle. +2 DP and PT pulses. Less than 2-second capillary refill. Normal sensation. Neurovascular intact. Results & Data Results & Data Laboratory Results . Diagnostic Findings . Postoperative x-rays the left hip show the prosthesis to be in anatomical al ignment with no signs of fracture complication or loosening. PG Care Time/CCT Total # of Minutes Spent Total Time Spent with Patient: Total time spent is greater than 50% in coordination of care (as documented) at patient's floor/unit and/or counseling patient: Coding Level of Care Code 61228 Post Operative Follow-Up Diagnoses Status post left hip replacement Z96.642
--- NOTE | 2023-04-20 09:41 | Discharge Summary ---
Date of Service April 20, 2023 Admission HPI (Per Admitting) Abbey is a pleasant 87-year-old female who I did a right hip replacement on about 2 years ago. She did very well with that. Now, she is dealing with left hip pain. All of her pain is located in her groin. She is having more and more trouble ambulating. She has trouble going up and down stairs. X-rays of clinical examination of the diagnostic for advanced arthritis of the left hip. After failing conservative treatment, she has elected proceed with a left anterior total of arthroplasty. Admission Exam (Per Admitting) On physical examination of left hip, she has decreased range of motion. She has pain with forced internal and external rotation. All of her pains located in her groin. Principal Diagnosis Same as "Discharge Diagnosis" noted below under Discharge Instructions. Discharge Exam . On physical examination of the left hip, dressing is in place clean, dry, and intact. Leg is out in full extension. Active plantarflexion dorsiflexion at the left ankle. +2 DP and PT pulses. Less than 2-second capillary refill. Normal sensation. Neurovascular intact. Discharge Data Procedures Performed Operation Date: 04/19/23 07:00 Actual Procedures p Left Anterior Total Hip Arthroplasty, Uncemented(Left) - Noah Arias DO Ordered Studies 04/19/23 FL hip LT 1V Routine Hospital Course (1) Status post left hip replacement: On April 19, 2023 Abbey arrived at [facility] and underwent a left total hip replacement without complications. She had a spinal anesthetic. Postoperatively, she was started on aspirin for DVT prophylaxis and transferred to the general orthopedic floor in stable condition. Her hospital course was uneventful. On postoperative day #1, her vital signs are stable and her pain was well-controlled. She participated well with physical therapy doing ambulation and range of motion exercises. She was discharged home in stable condition. She will follow-up with orthopedics in 2 weeks for postoperative care. PG Care Time/CCT Total # of Minutes Spent Total Time Spent with Patient: Total time spent is greater than 50% in coordination of care (as documented) at patient's floor/unit and/or counseling patient: Discharge Plan Discharge Items Patient Disposition: Home - Self-Care Reason For Visit: Left Hip Degenerative Joint Disease Discharge Diagnosis: Left hip replacement Activity: Per Instructions section Non-emergency contact: Surgeon Call non-emergency contact if: your wound has increased redness and your wound has increased drainage Follow-up/Referrals: Karen Lee MD [Primary Care Provider] - Diet: Regular Addtl Attending Provider Instructions: Activity and Therapy Recommendations: * If you are using [facility] then therapy will be provided at your home until they feel you have accomplished all of your goals. * If you are using [facility] then Physical Therapy will be provided until they feel you are ready to start Outpatient Physical Therapy. * If you are not using home therapy then Outpatient Physical Therapy should start about 3-5 days from your day of surgery. Therapy will last about 6-10 weeks * You were shown a series of exercises in the hospital. Do these exercises three times each day including the exercises you were shown in physical therapy. * Get up and walk several times each day.~ For the first four weeks, try not to stand or walk for more than one hour at a time. If you do stand or walk for more than one hour, you will not hurt anything, but your leg will likely swell.~~ * As you feel comfortable, you may change from the walker or crutches to a cane and~then to independent walking. Medications: * Narcotic You will likely be sent home from the hospital with a prescription for the narcotic pain medication that worked best throughout your stay. * Cefadroxil -take the antibiotic twice a day for 10 days to help prevent infection. * Aspirin Most patients will be required to take Aspirin 81mg twice a day for 6 weeks after surgery. This is obtained [id number] and a prescription is not necessary. * Other medications may be prescribed for specific circumstances. If you have any questions, please call the office at . * Resume previous home medications unless otherwise instructed TEDs/Elastic Stockings: The white elastic stockings help limit swelling and prevent blood clots from forming in your legs. The more you wear them, the more they work. Wear them for six weeks. Dressing Care: Leave the Silverlon dressing in place for 7 days. After 7 days you may remove the dressing. If the incision is not draining then you may leave the ortega open to air. If there is a little bit of drainage or if the ortega are getting stuck on your clothing then cover the incision with a dry dressing. The ortega will be removed at your 2 week follow-up appointment. Showering: You may shower with the Silverlon dressing in place. Do not let the shower spray hit the dressing directly. Pat the Silverlon dressing dry. If the dressing becomes wet underneath, then simply remove the dressing. Keep the incision dry until you are 7 days out from the day of surgery. After 7 days you may remove the Silverlon dressing and shower with the ortega exposed. Let soapy water run over the ortega and pat them dry. Do not scrub or soak the incision. Things To Watch For: * Drainage from the incision site that occurs more than one week after your surgery. * Increased redness at the incision site. * Fever above 102 degrees Fahrenheit. * Unusual chest pain or shortness of breath. * Call [facility] at with any of the above problems Follow-Up Visit: Follow-up with Dr. Arias's PA (Noah Thompson) 2-3 weeks after your day of deniz kishore. He will remove your ortega and answer any questions. If you have any additional questions or concerns, Dr Arias is usually in the office at the same time and will be available An appointment was probably scheduled when you signed-up for surgery in the office. If you have any questions call Office Instructions: More detailed instructions as well as Frequently Asked Questions were provided in a folder by our office when you signed-up for surgery. Please review these instructions when you get home. If you have any further questions or concerns, please feel free to call the office at [phone] Pending Studies at Discharge: No Stand-Alone Forms: [facility], Smoking Cessation Medications and DC Order Prescriptions: New aspirin 81 mg Tablet,Delayed Release (Dr/Ec) 81 mg PO BID 42 Days Qty: 0 0RF oxycodone 5 mg Tablet 5 - 10 mg PO Q6 PRN (Reason: pain) Qty: 30 0RF cefadroxil 500 mg capsule 500 mg PO BID 10 Days Qty: 20 0RF Continued Gemtesa 75 mg tablet 75 mg PO DAILY Qty: 90 3RF multivitamin capsule 1 cap PO QAM acetaminophen [Tylenol] 325 mg tablet 975 mg PO BID PRN (Reason: Pain) valsartan 160 mg tablet 160 mg PO DAILY Qty: 90 3RF meclizine 12.5 mg tablet 12.5 mg PO Q6H PRN (Reason: dizziness) Qty: 30 0RF polyethylene glycol 3350 [Miralax] 17 gram/dose Powder 17 g PO QAM melatonin 10 mg Tablet 10 mg PO HS levothyroxine 88 mcg capsule 88 mcg PO QAM cholecalciferol (vitamin D3) 125 mcg (5,000 unit) capsule 125 mcg PO QAM triamterene-hydrochlorothiazid 37.5-25 mg capsule 1 cap PO QAM paroxetine HCl 20 mg tablet 20 mg PO QAM pantoprazole [Protonix] 40 mg tablet,delayed release (DR/EC) 40 mg PO QAM Discontinued amoxicillin 500 mg tablet 2,000 mg PO ONCE Qty: 4 3RF Rx Instructions: 4 tabs 1 hour prior to procedure Discharge Orders: Discharge Order (Routine); Ordered 04/20/23 Ordered By: Seth Harris Admission Data Admit Date/Time: 04/19/23 08:37 Attending Provider: Noah Arias Admit Provider: Noah Arias Primary Care Provider: Karen Lee
[2023-04-20] MEDS: oxyCODONE HCL IR 5 MG TAB (IMMEDIATE RELEASE) PO PRN (09:56)
== END 2023-04-20 11:56 | disposition home or self-care (01) ==
LOC: ASU 05:09 → 3E 05:09